=== PATIENT | female | born 1980 | race Caucasian/White ===

== ENCOUNTER 2019-08-14 08:55 | Inpatient (IN) | payer MEDICAID ==
[~2019-08-14] VITALS: Ht 149.9 cm; Wt 66.2 kg
[2019-08-14] MEDS ORDERED: PNV1TABL50 PO (09:15)
[2019-08-14] MEDS ORDERED: CALC-775 PO (09:15)
[2019-08-14] MEDS ORDERED: FISH GT (09:15)
[2019-08-14] MEDS ORDERED: FERR325T6 PO (09:15)
[2019-08-14] MEDS ORDERED: LIDOCAINE HCL 2%/EPINEPHRINE 1:100,000 20 ML VIAL INFIL ONE (09:25)
[2019-08-14] MEDS ORDERED: LACTATED RINGERS 1,000 ML IV SCH ×2 (09:48→10:31)
[2019-08-14] MEDS ORDERED: NALOXONE HCL 0.4 MG/ML 1ML VIAL IM PRN (10:00)
[2019-08-14] MEDS ORDERED: BUTORPHANOL TARTRATE 2 MG/ML VIAL IV PRN (10:00)
[2019-08-14] MEDS ORDERED: LABETALOL HCL 5MG/ML VIAL 20ML IV PRN ×3 (10:00)
[2019-08-14] MEDS ORDERED: LIDOCAINE HCL 1% 20ML VIAL (Pyxis) INJ INFIL PRN (10:00)
[2019-08-14] MEDS ORDERED: HYDRALAZINE 20MG/ML VIAL IV PRN (10:00)
[2019-08-14] MEDS ORDERED: MISOPROSTOL 100MCG TABLET VG PRN (10:00)
[2019-08-14] MEDS ORDERED: CARBOPROST TROMETHAMINE 250 MCG/ML AMPUL IM PRN (10:00)
[2019-08-14 10:04] LABS: BASOPHILS % 0.6 % (0.0-2.0); EOSINOPHILS % 0.5 % (0.0-5.0); HEMATOCRIT. 39.5 % (36.0-48.0); HEMOGLOBIN. 13.4 g/dL (12.0-16.0); MEAN CORPUSCULAR HEMOGLOBIN 31.3 pg (28.0-32.0); MEAN CORPUSCULAR VOLUME 92.1 fL (81.0-99.0); MEAN PLATELET VOLUME 10.6 fl (7.4-10.4); MONOCYTES % 7.7 % (2.0-8.0); NEUTROPHILS % 60.2 % (40.0-76.0); PLATELET 148 x1000/uL (130-400); RED BLOOD CELL COUNT 4.29 mill/uL (4.2-5.4); RED CELL DISTRIBUTION WIDTH 13.5 % (11.6-14.6)
[2019-08-14 10:11] LABS: CHLORIDE 111 mEq/L (98-107)
[2019-08-14 10:17] LABS: INR 0.9; PARTIAL THROMBOPLASTIN TIME 29.4 sec (23.4-31.0); PROTHROMBIN TIME 9.4 sec (9.6-11.0)
[2019-08-14] MEDS ORDERED: OXYTOCIN 20 UNITS in LACTATED RINGERS 1,000 ML IV PRN (11:00)
[2019-08-14 11:41] LABS: CLARITY URINE CLEAR (CLEAR); COLOR URINE YELLOW (YELLOW); KETONES URINE NEGATIVE (NEGATIVE); LEUKOCYTE ESTERASE URINE 3+ (NEGATIVE); NITRITE URINE NEGATIVE (NEGATIVE); OCCULT BLOOD URINE NEGATIVE (NEGATIVE); PROTEIN URINE NEGATIVE (NEGATIVE); SPECIFIC GRAVITY URINE 1.012 (1.005-1.030); UROBILINOGEN URINE 0.2 E.U./dL (0.2-1.0)
[2019-08-14] MEDS ORDERED: ROPIVACAINE HCL/PF EPIDURAL 200 ML EPI SCH (12:00)
[2019-08-14 12:12] LABS: HEPATITIS B SURFACE ANTIGEN NEGATIVE
[2019-08-14 12:28] LABS: METHADONE URINE SCREEN NEGATIVE (NEGATIVE)
[2019-08-14 12:29] LABS: *AMPHETAMINES SCREEN URINE NEGATIVE (NEGATIVE); *BARBITURATES SCREEN URINE NEGATIVE (NEGATIVE); *BENZODIAZEPINES SCREEN URINE NEGATIVE (NEGATIVE); *COCAINE SCREEN URINE NEGATIVE (NEGATIVE); CANNABINOID URINE SCREEN NEGATIVE (NEGATIVE); OPIATES URINE SCREEN NEGATIVE (NEGATIVE); PHENCYCLIDINE URINE SCREEN NEGATIVE (NEGATIVE)
[2019-08-14] MEDS ORDERED: PHENYLEPHRINE HCL 10 MG/ML 1ML (IV VIAL) IV ONE (19:10)
[2019-08-14] MEDS ORDERED: SODIUM CHLORIDE 0.9% 10ML VIAL ONE (19:11)
[2019-08-15] MEDS ORDERED: DEXT 5%/LR + PITOCIN 20UNITS/L 1,000 ML IV SCH ×2 (11:00→15:29)
[2019-08-15] MEDS ORDERED: ACETAMINOPHEN WITH CODEINE 300/30MG TABLET PO PRN ×2 (15:30)
[2019-08-15] MEDS ORDERED: BISACODYL 10MG SUPP PR PRN (15:30)
[2019-08-15] MEDS ORDERED: RHO(D) IMMUNE GLOBULIN 300 MCG/SYR IM PRN (15:30)
[2019-08-15] MEDS ORDERED: GLYCERIN/WITCH HAZEL LEAF MEDICATED PAD TOP PRN (15:30)
[2019-08-15] MEDS ORDERED: IBUPROFEN 400MG TABLET PO PRN (15:30)
[2019-08-15] MEDS ORDERED: LANOLIN OINT 7GM TUBE TOP PRN (15:30)
[2019-08-15] MEDS ORDERED: HEMORRHOIDAL SUPP PR PRN (15:30)
[2019-08-15 17:31] VITALS: BP 143/76
[2019-08-15 20:00] VITALS: BP 121/67
[2019-08-15] MEDS: MAGNESIUM/ALUMINUM HYDROXIDE/SIMETHICONE 30ML UDC PO SCH (21:00)
[2019-08-15] MEDS: DOCUSATE SODIUM 100MG CAPSULE PO SCH (21:00)
[2019-08-15] MEDS: SIMETHICONE 80MG TABLET CHEW PO SCH (22:19)
[2019-08-16 04:30] VITALS: BP 104/60
[2019-08-16 07:45] VITALS: BP 125/72
[2019-08-16] MEDS: MAGNESIUM/ALUMINUM HYDROXIDE/SIMETHICONE 30ML UDC PO SCH ×3 (08:24→17:30)
[2019-08-16] MEDS: SIMETHICONE 80MG TABLET CHEW PO SCH ×4 (08:25→21:52)
[2019-08-16] MEDS ORDERED: PRENATAL VIT/FE FUMARATE/FA TABLET PO SCH (09:00)
[2019-08-16 10:22] LABS: BASOPHILS % 0.2 % (0.0-2.0); EOSINOPHILS % 0.2 % (0.0-5.0); HEMATOCRIT. 30.4 % (36.0-48.0); HEMOGLOBIN. 10.3 g/dL (12.0-16.0); LYMPHOCYTES % 9.4 % (20.0-50.0); MEAN CORPUSCULAR HEMOGLOBIN 31.7 pg (28.0-32.0); MEAN CORPUSCULAR VOLUME 94.1 fL (81.0-99.0); MEAN PLATELET VOLUME 10.3 fl (7.4-10.4); NEUTROPHILS % 85.2 % (40.0-76.0); PLATELET 120 x1000/uL (130-400); RED BLOOD CELL COUNT 3.23 mill/uL (4.2-5.4)
[2019-08-16 15:55] VITALS: BP 134/83
[2019-08-16 19:45] VITALS: BP 127/72
[2019-08-16] MEDS: DOCUSATE SODIUM 100MG CAPSULE PO SCH (21:52)
[2019-08-17 04:20] VITALS: BP 137/82
[2019-08-17] MEDS: SIMETHICONE 80MG TABLET CHEW PO SCH (07:27)
[2019-08-17] MEDS: MAGNESIUM/ALUMINUM HYDROXIDE/SIMETHICONE 30ML UDC PO SCH (07:27)
[2019-08-17 07:45] VITALS: BP 129/73
[2019-08-17] MEDS ORDERED: INFLUENZA VIRUS VACCINE(AFLURIA) 0.5ML SYR IM ONE (09:00)
== END 2019-08-17 10:30 | disposition home or self-care (01) | DRG 560 ==
LOC: 8 EST LDRP 08:55 → INTOOBSV 08:55 → OBSVTOIN 08:55 → 8 EST LDRP 09:01 → OBSVTOIN 13:25 → 8EST 08-15 14:31
PROVIDERS: ADMIT Obstetrics & Gynecology; ATTEND Obstetrics & Gynecology
PROC: 10E0XZZ Delivery of Products of Conception, External Approach (ICD-10-PCS; principal; 2019-08-15)
PROC: 3E0R3BZ Introduction of Anesthetic Agent into Spinal Canal, Percutaneous Approach (ICD-10-PCS; 2019-08-15)
PROC: 00HU33Z Insertion of Infusion Device into Spinal Canal, Percutaneous Approach (ICD-10-PCS; 2019-08-15)
DX: O69.81X0 Labor and delivery complicated by cord around neck, without compression, not applicable or unspecified (principal); D62 Acute posthemorrhagic anemia; O90.81 Anemia of the puerperium; O99.13 Other diseases of the blood and blood-forming organs and certain disorders involving the immune mechanism complicating the puerperium; D72.829 Elevated white blood cell count, unspecified; Z3A.39 39 weeks gestation of pregnancy; Z79.899 Other long term (current) drug therapy; Z37.0 Single live birth
CPT/HCPCS: 36415; 80305; 81003; 82962; 84550; 85384; 86592; 86703; 86762; 86850; 86900; 87340; 90686; G0378; J2370; J2590; J2795; J3490; J7120; A4315